=== PATIENT | female | born 1985 | race Native Hawaiian/Other Pacific Islander ===

== ENCOUNTER 2016-11-30 10:13 | Emergency (ER) | payer OTHER ==
[2015-07-13 17:35] VITALS: BMI 25.2
[2016-11-30 16:06] VITALS: BP 106/71; PULSE 77; RESP 18; TEMP 98.4; O2SAT 97
== END 2016-11-30 11:10 | disposition home or self-care (01) ==
LOC: H.EROB 10:13 → H.EROB2 10:13
DX: O47.1 False labor at or after 37 completed weeks of gestation (principal); Z3A.37 37 weeks gestation of pregnancy

== ENCOUNTER 2016-12-18 20:43 | Inpatient (IN) | payer OTHER ==
--- NOTE | 2016-12-18 21:01 | OBHP ---
Datetime: 11/30/2016 10:56 IP Adm Impression: Term, intrauterine ; No Active Labor; Intact Membranes IP Admit Plan: Observation/Evaluation; Discharge home Admit Comment, IP Provider: 31-year-old 001 at 37 weeks 6 days gestational age presented to OB ED complaining of possible leakage of fluids. Patient denies any contractions or vaginal bleeding. P atient reports good movement. Otherwise, patient without complaints. records reviewed Past medical history none Past surgical history none Medications vitamins No known drug allergies Obstetrical history full-term normal spontaneous vaginal delivery 1 Social history no tobacco, no drugs, no alcohol Physical exam: Refer to physical exam findings Assessment: 31-year-old 001 at 37 weeks 6 days gestational age. No evidence of spontaneous rupture of me mbranes at this time. No evidence of labor at this time. Both maternal well-being and well-bein g reassuring at this time. Plan: Discharge home with labor precautions. Patient has follow-up scheduled this week. Pelvic Type - PN: Adequate Extremities - PN: Normal Abdomen - PN: Normal Back - PN: Normal Breast - PN: Normal Lungs - PN: Normal Heart - PN: Normal Thyroid - PN: Normal Neurologic - PN: Normal HEENT - PN: Normal General - PN: Normal FHR - Baseline A Provider: 120s-130s Membranes, Provider: Intact Contraction Comments Provider: occasional Comments, ACOG Physical Exam: Bedside ultrasound: Adequate fluid, largest amniotic fluid pocket 5.2 cm x 6.3 cm IP Hx Assessment: The History has been Reviewed and is Current EGA AdmitDate IP: 37.5 Vital Signs Provider: Reviewed; Within Normal Limits IP Chief Complaint: Suspected ruptured membranes NICHD Variability Prov Fetus A: Moderate 6-25bpm NICHD Accel Fetus A IP Provider: 15X15 FHR Category Provider Fetus A: Category I NICHD Decel Fetus A IP Provider: None Dilatation, Provider: 0 Effacement, Provider: 0 Station, Provider: -4 Genitourinary Exam: Normal DTRs - PN: Normal
[2016-12-18 21:15] VITALS: BMI 33.2
[2016-12-18] MEDS: Lactated Ringer's 1,000 ML IV SCH ×3 (21:30→23:20)
[2016-12-18] MEDS ORDERED: Oxytocin 30 units/LR 500ML 30 U/500 ML BAG IV SCH (21:30)
--- NOTE | 2016-12-18 21:31 | OBADHP ---
Datetime: 12/18/2016 21:28 Admit Comment, IP Provider: Patient is a 31-year-old 2 para 1 with an EDC of 12/16 by LMP an d first trimester ultrasound at 11 weeks. She presents today at 40.2 weeks with complaints of increas ed intensity and pain of contractions since 7:40 PM. she denies spontaneous rupture of membranes and vaginal bleeding or decreased movement. She states her care has been unremarkable Past OB history spontaneous vaginal delivery 1 with 12 hour labor duration and delivery 17 month s ago Past medical history none Past surgical history none Medications vitamins No known drug allergies I: 40.2 weeks in active labor P: Admit for expected vaginal delivery Patient desires epidural for pain management IP Chief Complaint: Uterine contractions Dilatation, Provider: 4 EGA AdmitDate IP: 40.2 IP Adm Impression: Postterm, intrauterine ; Active labor IP Admit Plan: Admit to unit; Initiate labor protocol Datetime: 12/18/2016 21:21 Abdomen - PN: Normal Lungs - PN: Normal Heart - PN: Normal Neurologic - PN: Normal HEENT - PN: Normal General - PN: Normal Presentation-Admit: Vertex FHR - Baseline A Provider: 120 Membranes, Provider: Intact Comments, ACOG Physical Exam: B+/hepatitis B surface antigen negative, rubella immune, RPR nonreacti ve 2/ HIV nonreactive 2 GBS negative Vital Signs Provider: Within Normal Limits Effacement, Provider: 80 Station, Provider: -1 Genitourinary Exam: Normal Datetime: 11/30/2016 10:56 Pelvic Type - PN: Adequate Extremities - PN: Normal Back - PN: Normal Breast - PN: Normal Thyroid - PN: Normal Contraction Comments Provider: occasional IP Hx Assessment: The History has been Reviewed and is Current NICHD Variability Prov Fetus A: Moderate 6-25bpm NICHD Accel Fetus A IP Provider: 15X15 FHR Category Provider Fetus A: Category I NICHD Decel Fetus A IP Provider: None DTRs - PN: Normal
[2016-12-18 21:54] LABS: BASO # 0.1 K/uL (0.0-0.2); BASO % 0.8 % (0.0-2.0); EOS % 0.4 % (0.0-4.0); HEMATOCRIT 40.6 % (34.0-47.0); LYMPH # 1.9 K/uL (1.0-4.3); LYMPH % 19.6 % (20.0-40.0); MEAN CORPUSCULAR HEMOGLOBIN 34.6 pg (27.0-31.0); MEAN CORPUSCULAR HGB CONC 33.6 g/dL (33.0-37.0); MEAN PLATELET VOLUME 7.7 fl (7.2-11.7); MONO # 0.8 K/uL (0.0-0.8); MONO % 7.9 % (0.0-10.0); NEUT # 6.8 K/uL (1.8-7.0); NEUT % 71.3 % (50.0-75.0); RED CELL DISTRIBUTION WIDTH 12.9 % (11.5-14.5); WHITE BLOOD COUNT 9.6 K/uL (4.8-10.8)
[2016-12-18] MEDS ORDERED: Fentanyl/Bupivacaine HCl 250 ML EPI ONE (22:25)
[2016-12-18] MEDS ORDERED: Bupivacaine HCl 0.25% PF (10 ml) Inj ONE (22:25)
[2016-12-18] MEDS ORDERED: ePHEDrine 50 mg/ml Inj ONE (22:58)
[2016-12-19] MEDS: Lactated Ringer's 1,000 ML IV SCH (06:50)
[2016-12-19] MEDS ORDERED: Lidocaine 1% Inj (20ml) ONE (07:20)
--- NOTE | 2016-12-19 09:00 | OBPN ---
Datetime: 12/19/2016 08:45 IP Progress Impression Other: Active phase of labor IP Progress Impression: Normal progression of labor; Reassuring heart rate IP Informed Consent Obtain: Vaginal Delivery; Risks, Benefits and Alternatives Discussed IP Progress Plan: Continue present management FHR - Baseline A Provider: 130 Presentation-Admit: Vertex IP Progress Note Comment: Notiifed earlier that she was 6-7cm at 8am but wanted to eat (hungry) She was admitted in early labor, given epidural for pain management. She was 4cm last night. Currently, she is selpping after clear liquid diet. A: active pahse of labor irregular CTX PLAN: will let her rest...later start Piotcin augmentation. present NICHD Accel Fetus A IP Provider: 15X15 FHR Category Provider Fetus A: Category I NICHD Variability Prov Fetus A: Moderate 6-25bpm NICHD Decel Fetus A IP Provider: None Datetime: 12/18/2016 21:28 Membranes, Provider: Intact (Annotations: Data stored by CPN on behalf of user) Dilatation, Provider: 4 Effacement, Provider: 80 Station, Provider: -1 Datetime: 12/18/2016 21:21 Vital Signs Provider: Within Normal Limits Datetime: 11/30/2016 10:56 Contraction Comments Provider: occasional
--- NOTE | 2016-12-19 11:05 | OBPN ---
Datetime: 12/19/2016 10:30 IP Progress Impression: Normal progression of labor; Reassuring heart rate IP Informed Consent Obtain: Vaginal Delivery; Risks, Benefits and Alternatives Discussed IP Procedures: Artificial ROM IP Progress Plan: Augmentation Pool Provider: Positive Membranes, Provider: Ruptured Amniotic Fluid Color, Provider: Clear Contraction Comments Provider: + IP Progress Note Comment: AROM augmentatoin...pitocin to be started. FHR Category Provider Fetus A: Category I Dilatation, Provider: 7 Effacement, Provider: 90 Station, Provider: -1
--- NOTE | 2016-12-19 12:26 | OBHP ---
Datetime: 12/19/2016 10:30 Amniotic Fluid Color, Provider: Clear Membranes, Provider: Ruptured Contraction Comments Provider: + Pool Provider: Positive FHR Category Provider Fetus A: Category I Dilatation, Provider: 7 Effacement, Provider: 90 Station, Provider: -1 Datetime: 12/19/2016 08:45 Presentation-Admit: Vertex FHR - Baseline A Provider: 130 NICHD Variability Prov Fetus A: Moderate 6-25bpm NICHD Accel Fetus A IP Provider: 15X15 NICHD Decel Fetus A IP Provider: None Datetime: 12/18/2016 21:28 IP Adm Impression: Postterm, intrauterine ; Active labor IP Admit Plan: Admit to unit; Initiate labor protocol IP Hx Assessment: The History has been Reviewed and is Current EGA AdmitDate IP: 40.2 IP Chief Complaint: Uterine contractions Datetime: 12/18/2016 21:21 Admit Comment, IP Provider: Patient is a 31-year-old 2 para 1 with an EDC of 12/16 by LMP an d first trimester ultrasound at 11 weeks. She presents today at 40.2 weeks with complaints of increas ed intensity and pain of contractions since 7:40 PM. she denies spontaneous rupture of membranes and vaginal bleeding or decreased movement. She states her care has been unremarkable Past OB history spontaneous vaginal delivery 1 with 12 hour labor duration and delivery 17 month s ago Past medical history none Past surgical history none Medications vitamins No known drug allergies I: 40.2 weeks in active labor P: Admit for expected vaginal delivery Patient desires epidural for pain management Social history no tobacco, no drugs, no alcohol OB Hospitalist on-call Dec 19 starting 8am. Late entry/signing OB hospitalist note from previous night mahndo Abdomen - PN: Normal Lungs - PN: Normal Heart - PN: Normal Neurologic - PN: Normal HEENT - PN: Normal General - PN: Normal Comments, ACOG Physical Exam: B+/hepatitis B surface antigen negative, rubella immune, RPR nonreacti ve 2/ HIV nonreactive 2 GBS negative Vital Signs Provider: Within Normal Limits Genitourinary Exam: Normal
[2016-12-19] MEDS ORDERED: Oxycodone/Acetaminophen 5/325 mg Tab PO PRN (15:00)
[2016-12-19] MEDS ORDERED: Benzocaine/Menthol SPRAY TOP PRN (15:00)
--- NOTE | 2016-12-19 16:08 | OBDS ---
DELIVERY PERSONNEL Delivery Doctor: Lita Mariano DO Scrub Nurse: Marcela Salvador Burlapper: Claudia Wilkins RN Anesthesiologist: Crissy Durant MD MATERNAL INFORMATION Delivery Anesthesia: Epidural Medications in Delivery: 30 pitocin Estimated Blood Loss (ml): 200 Placenta Cultured: No Maternal Complications: None Provider Comments: Ovre intact perineum of live from [facility]. After 's head was delivered, she was placed in McRobert's. With no delivery of infant with her pushing, suprapubic pr essure applied. Then with next push, posterior (right shoulder delivered with mother pushing). Infa nt was bulb suctoined nasopharygeally. The cord clamped and father cut it. Placenta deliveed intact spontaneously. EBL 200cc. Infant AGPAR 9,9 and good ROM of all extremities. LABOR SUMMARY EDC: 12/16/2016 00:00 No. Babies in Womb: 1 Attempted: No Labor Anesthesia: Epidural LABOR INFORMATION Reason for Induction: Not Applicable Onset of Labor: 12/18/2016 21:13 Complete Dilatation: 12/19/2016 13:05 Oxytocin: Augmentation Group B Beta Strep: Negative Steroids Given: None Reason Steroids Not Administered: Not Applicable MEMBRANES Membranes Rupture Method: Artificial Rupture of Membranes: 12/19/2016 10:30 Length of Rupture (hrs): 4.15 Amniotic Fluid Color: Clear Amniotic Fluid Amount: Small Amniotic Fluid Odor: Normal STAGES OF LABOR Stage 1 hrs: 15 Stage 1 min: 52 Stage 2 hrs: 1 Stage 2 min: 34 Stage 3 hrs: 0 Stage 3 min: 14 Total Time in Labor hrs: 17 Total Time in Labor min: 40 VAGINAL DELIVERY Episiotomy: None Laceration Extension: N/A Laceration Type: None Laceration Repair: No Initial Vag Sponge Count: 5 Final Vag Sponge Count: 5 Initial Vag Sharps Count: 1 Final Vag Sharps Count: 1 Sponge Count Correct: Yes Sharps Count Correct: Yes Count Comment: 5 laps one syringe BABY A INFORMATION Infant Delivery Date/Time: 12/19/2016 14:39 Method of Delivery: Vaginal Born in Route : No : N/A Forceps: N/A Vacuum Extraction: N/A Shoulder Dystocia : Yes SHOULDER DYSTOCIA BABY A Delivery of Head: 12/19/2016 14:38 Delivery Date/Time: 12/19/2016 14:39 Time Head to Delivery : 1.0 1st Intervention to Resolve: Suprapubic Pressure 2nd Intervention to Resolve: McRobert's Maneuver 3rd Intervention to Resolve: Posterior Arm Release Verify NO Fundal Pressure: No Fundal Pressure Applied Arm Under Symphisis at Del: Left Shoulder Dystocia Comments: right arm was posterior...left was anterior...good ROM PRESENTATION/POSITION BABY A Presentation: Cephalic Cephalic Presentation: Vertex Breech Presentation: N/A PLACENTA INFORMATION BABY A Placenta Delivery Time : 12/19/2016 14:53 Placenta Method of Delivery: Spontaneous Placenta Status: Delivered SCORES BABY A Heart Rate 1 min: >100 bpm Resp Effort 1 min: Good Cry Reflex Irritability 1 min: Cough or Sneeze or Pulls Away Muscle Tone 1 min: Active Motion Color 1 min: Body [place], Extremities Blue Resuscitation Effort 1 min: N/A SCORE 1 MIN: 9 Heart Rate 5 min: >100 bpm Resp Effort 5 min: Good Cry Reflex Irritability 5 min: Cough or Sneeze or Pulls Away Muscle Tone 5 min: Active Motion Color 5 min: Body [place], Extremities Blue Resuscitation Effort 5 min: N/A SCORE 5 MIN: 9 INFANT INFORMATION BABY A Gestational Age at Delivery: 40.3 Gestational Status: Term Outcome : Liveborn Condition : Stable Infant Sex: Female IDENTIFICATION/MEDS BABY A ID Band Number: [id number] ID Band Location: Left Leg; Left Arm WEIGHT/LENGTH BABY A Infant Birthweight (gms): 3530 Infant Weight (lb): 7 Weight (oz): 12 CORD INFORMATION BABY A No. Cord Vessels: 3 Nuchal Cord : N/A Nuchal Cord Other: N/A True Knot: N/A Infant Cord pH Baby Arterial: N/A Cord pH Baby Venous: N/A Cord Blood Taken: Yes Banking/Donate Info: N/A Infant Suction: Mouth; Nose ASSESSMENT BABY A Infant Complications: None Physical Findings at Delivery: Within Normal Limits; Caput Succedaneum Physical Findings Other: immediate skin to skin performed Infant Respirations: Appears Normal Foreign Languages Department Chair/ALS Called : No Care By: Song/Codie Transferred To: Remains with Mother
[2016-12-20 06:36] LABS: BASO # 0.1 K/uL (0.0-0.2); BASO % 0.5 % (0.0-2.0); EOS # 0.1 K/uL (0.0-0.7); EOS % 0.6 % (0.0-4.0); HEMATOCRIT 35.6 % (34.0-47.0); LYMPH % 14.9 % (20.0-40.0); MEAN CELL VOLUME 101.9 fl (81.0-99.0); MEAN CORPUSCULAR HEMOGLOBIN 34.4 pg (27.0-31.0); MEAN CORPUSCULAR HGB CONC 33.8 g/dL (33.0-37.0); MEAN PLATELET VOLUME 7.5 fl (7.2-11.7); MONO # 0.9 K/uL (0.0-0.8); MONO % 6.8 % (0.0-10.0); NEUT # 10.4 K/uL (1.8-7.0); NEUT % 77.2 % (50.0-75.0); RED CELL DISTRIBUTION WIDTH 12.9 % (11.5-14.5); WHITE BLOOD COUNT 13.5 K/uL (4.8-10.8)
[2016-12-20] MEDS: Multivitamin With Minerals Tab PO SCH (08:15)
--- NOTE | 2016-12-20 12:25 | OBPPN ---
Datetime: 12/20/2016 12:22 PP Pain Prov: Within normal limits PP Nausea Prov: Denies PP Flatus Prov: Yes PP Breasts Prov: Not Done PP Heart Prov: Normal PP Lungs Prov: Normal PP Abdomen/Uterus Prov: Normal PP Lochia Prov: Not Done PP Vulva/Perineum Prov: Not Done PP CVA Tenderness Prov: Normal PP Extremities Prov: Normal PP Progress Prov: Normal PP Impression Prov: Normal progression PP Plan Prov: Continue present management PP Progress Note Prov: Patient doing well reports minimal discomfort voiding without difficulty and reports minimal lochia Vital signs stable afebrile The uterus firm below the umbilicus Extremities no Homans day #1 Motrin as needed, ambulate, regular diet, Discharge in a.m. Vital Signs Provider PP: Reviewed
--- NOTE | 2016-12-21 08:40 | OBPPN ---
Datetime: 12/21/2016 08:35 PP Pain Prov: Within normal limits PP Abdomen/Uterus Prov: Normal PP Lochia Prov: Normal PP Extremities Prov: Normal PP Progress Prov: Normal PP Impression Prov: Normal progression PP Plan Prov: Discharge PP Progress Note Prov: PPD 2 s/p , doing well, breast and bottle feeding Rx motrin given Discharge home today Vital Signs Provider PP: Reviewed
--- NOTE | 2016-12-21 08:45 | OBDCSUM ---
Datetime: 12/21/2016 08:42 Discharged to, Provider: Home Follow up at, Provider: Dr. Montserrat Thorpe Instr Activity: Normal activity; May Shower Disch Instr Diet: Regular Discharge Instructions, Provider: Routine instructions given Discharge Diagnosis, Provider: Term Delivered Discharge Time: 12/21/2016 08:42 Follow up in weeks, Provider: 6 weeks Contraception discussed, Prov: No Disch Activity Restrictions: No exercising; No lifting; No sexual activity; Nothing in vagina - Inte rcourse, tampons, douche
[2016-12-21] MEDS: Multivitamin With Minerals Tab PO SCH (09:38)
[2016-12-21 15:58] VITALS: BP 117/76; PULSE 66; RESP 20; TEMP 98.3; O2SAT 99
== END 2016-12-21 11:35 | disposition home or self-care (01) | DRG 775 ==
LOC: H.EROB2 20:43 → H.L&D 21:21 → H.OB/GYN 12-19 17:08
PROVIDERS: ADMIT Obstetrics & Gynecology; ATTEND Obstetrics & Gynecology
PROC: 10E0XZZ Delivery of Products of Conception, External Approach (ICD-10-PCS; principal; 2016-12-18)
PROC: 4A1HXCZ Monitoring of Products of Conception, Cardiac Rate, External Approach (ICD-10-PCS; 2016-12-18)
DX: O66.0 Obstructed labor due to shoulder dystocia (principal); Z37.0 Single live birth; Z3A.40 40 weeks gestation of pregnancy